=== PATIENT | male | born 1960 | race Caucasian/White ===

== ENCOUNTER → 2017-10-05 | Day surgery (SDC) | payer OTHER ==
[~2017-10-05] VITALS: Ht 180.3 cm; Wt 106.6 kg
[~2017-10-05] MED LIST: NEXIUM40 M1 PO; SERTRALINE HCL100 MG PO
--- NOTE | 2017-10-05 10:55 | Operative Report ---
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 Patient complaining mechanical symptoms and swelling and was indicated for surgical arthroscopy. The risks and benefits of procedure discussed in detail in the office and he wished to proceed. Of note this morning preoperatively the patient did mention that he had some poison wesley on the left leg. I inspected the area and deemed it to be reasonable to proceed with the surgery since poison wesley was not and the location of the R scopic portals. Operative/Procedure Note Note: Once informed consent was obtained and the correct limb was identified the patient was brought to operative room placed on table supine position. After administration of general endotracheal anesthesia patient's left leg was placed in leg spears and the foot of table was dropped. Left lower extremity is prepped and draped usual sterile fashion. To begin the procedure standard lateral portal was made and the arthroscope was introduced. Diagnostic arthroscopy was carried out. Patellofemoral joint was inspected. There no plica or bands. There are no loose bodies. The inferior pole of patella grade 1 chondral malacia changes. Femoral trochlea had grade 2 chondral malacia changes. The scope was taken to lateral gutter. There are no loose bodies. The leg was placed in figure 4 position and lateral compartment of the knee was entered. Lateral compartment of the knee was pristine with no evidence of meniscal pathology or cartilage damage. The arthroscope was taken across intercondylar notch and the ACL was intact. I placed a valgus stress in the knee medial compartment knee was entered. There is apparently a horizontal cleavage tear of the body of the medial meniscus on inspection. A medial portal was made under direct visualization and the meniscal tear was probed. Using a straight biting instrument and a 4.2 full-radius shaver partial medial meniscectomy was performed without complication. The meniscus was trimmed back to a stable rim. Probe was placed underneath and over the top of the meniscus was not able to bring any the meniscus into the joint from the posterior horn of the medial meniscus all around to the body of the medial meniscus. The medial gutter was checked for any loose bodies and there were none. The knee was irrigated with sterile saline solution and the instruments were removed. This portals were closed with 3-0 nylon interrupted sutures and a sterile dressing was applied. The patient was awakened and taken recovery room in stable condition.
== END ==
LOC: STS 01:37
DX: M23.232 Derangement of other medial meniscus due to old tear or injury, left knee (principal); M22.42 Chondromalacia patellae, left knee; K21.9 Gastro-esophageal reflux disease without esophagitis; G47.33 Obstructive sleep apnea (adult) (pediatric); L23.7 Allergic contact dermatitis due to plants, except food
CPT/HCPCS: J0131; J2250

== ENCOUNTER 2018-01-18 12:40 | Emergency (ER) | payer OTHER ==
[~2018-01-18] VITALS: Ht 180.3 cm; Wt 104.3 kg
--- NOTE | 2018-01-18 12:59 | ED CARDIAC/CP/PALPITATIONS ---
See Addendum History of Present Illness General Chief Complaint: Chest Pain Stated Complaint: CHEST TIGHTNESS, PAIN Source: patient Exam Limitations: no limitations Vital Signs & Intake/Output Vital Signs & Intake/Output Vital Signs Date Time Temp Pulse Resp B/P B/P Pulse O2 O2 Flow FiO2 Mean Ox Delivery Rate 01/18 1328 56 18 178/86 98 Room Air Room Air 01/18 1315 98 Room Air Room Air 01/18 1304 62 20 185/93 97 Room Air Room Air 01/18 1248 97.3 60 16 186/100 95 Room Air Allergies Coded Allergies: Penicillins (HIVES 10/03/17) cefadroxil (From DURICEF) (HIVES 10/03/17) Reconcile Medications Esomeprazole (Nexium) 40 MG CAPSULE.DR 1 CAP PO DAILY GI (Reported) Sertraline HCl 100 MG TABLET 1 TAB PO DAILY MENTAL HEALTH (Reported) Triage Note: PT TO ED C/O CHEST PRESSURE SINCE WAKING 1 HOUR AGO. STATES IT WOKE HIM UP. HAD SIMILAR EPISODE ON TUESDAY. STATES PAIN IS 2/10. DENIES N/V/D. DENIES SOB, DIFF BREATHING. PT APPEARS DIAPHORETIC. EKG DONE. Triage Nurses Notes Reviewed? yes Onset: Abrupt Duration: better Timing: single episode today Quality/Severity: moderate, pressure Location: central Radiation: arms, back HPI: Patient is a 57-year-old male with a past medical history of depression on Zoloft and GERD who 3 months ago had a left knee arthroscopy and 10 days ago had a endoscopy performed by Dr. Merlos in which she states that on Tuesday while at rest he had approximately 20-30 minutes of chest pain that resolved patient did not get evaluated by a medical provider patient states that today he was in his normal state health one hour prior to arrival while at rest he had recurrence of his chest pain with symptoms of lightheaded sensation dizziness and excessive diaphoresis with back pain and right arm pain. Symptoms have completely resolved. Patient took aspirin 325 today Patient denies any illicit drug use however does drink alcohol on a regular basis last alcohol beverage was Tuesday. He states that since the symptoms began on Tuesday he limited his drinking Denies any cardiology workup in the past (Woody SANDERSON,Brian) Past History Travel History Traveled to [place] past 21 day No Medical History Any Pertinent Medical History? see below for history Gastrointestinal: GERD Psychiatric: depression Surgical History Surgical History: non-contributory Psychosocial History What is your primary language Lithuanian Tobacco Use: Never used ETOH Use: heavy use Illicit Drug Use: denies illicit drug use Family History Hx Contributory? No (Brian Olsen) Review of Systems Review of Systems Constitutional: Reports: no symptoms. EENTM: Reports: no symptoms. Respiratory: Reports: see HPI. Cardiovascular: Reports: see HPI, chest pain. GI: Reports: no symptoms. Genitourinary: Reports: no symptoms. Musculoskeletal: Reports: see HPI, back pain. Skin: Reports: no symptoms. Neurological/Psychological: Reports: no symptoms. Hematologic/Endocrine: Reports: no symptoms. Immunologic/Allergic: Reports: no symptoms. All Other Systems: Reviewed and Negative (Brian Olsen) Physical Exam Physical Exam General Appearance: alert, DIAPHORETIC Head: atraumatic Eyes: Bilateral: normal appearance. Ears, Nose, Throat: hearing grossly normal Neck: normal inspection, full range of motion Respiratory: normal breath sounds, chest non-tender, no respiratory distress Cardiovascular: regular rate/rhythm Gastrointestinal: normal bowel sounds, soft, non-tender Rectal: heme negative stool Extremities: normal inspection, no edema Neurologic/Psych: no motor/sensory deficits, awake, alert Skin: intact, normal color, warm/dry Core Measures ACS in differential dx? Yes CVA/TIA Diagnosis No Sepsis Present: No Sepsis Focused Exam Completed? No (Brian Olsen) Progress Differential Diagnosis: AMI, aortic dissection, atrial fibrillation, cholecystitis, CHF/pulm edema, costochondritis, hyperkalemia, hypovolemia, hyperthyroid, hyperventilation, intracranial hemorrhage, musculoskeletal pain, myocarditis, pancreatitis, pericarditis, pneumonia, pneumothorax, PSVT, pulmonary embolism, PUD/GERD, PVCs/PACs, respiratory failure, rib fracture, sepsis, unstable angina, V-fib/V-Tach, WPW syndrome Plan of Care: Orders Procedure Date/time Status LIPID PANEL 01/19 0600 Active TROPONIN LEVEL 01/18 2330 Active EKG 01/18 2300 Active TROPONIN LEVEL 01/18 1800 Active EKG 01/18 1800 Active Lab Add-on Test 01/18 1514 Active Add-on Test (ER Only) 01/18 1506 Active Pathway - chart 01/18 1454 Active House Staff 01/18 1454 Active Patient Data 01/18 1454 Active Code Status 01/18 1454 Active Patient Data 01/18 1434 Active THYROID STIMULATING HORMONE 01/18 1253 Active PARTIAL THROMBOPLASTIN TIME 01/18 1253 Complete PROTHROMBIN TIME 01/18 1253 Complete GLYCOSYLATED HGB 01/18 1253 Active URINALYSIS 01/18 1244 Complete TROPONIN LEVEL 01/18 1244 Active MAGNESIUM 01/18 1244 Active D-DIMER 01/18 1244 Complete COMPREHENSIVE METABOLIC PANEL 01/18 124 Active CBC WITHOUT DIFFERENTIAL 01/18 1244 Complete EKG 01/18 1242 Active VTE Mechanical Prophylaxis 01/18 UNK Active Telemetry/Potato Chip Fryer 01/18 UNK Active Current Medications Sig/Sommer Start time Last Medication Dose Stop Time Status Admin Ticagrelor 90 MG BID 01/19 0900 UNVr (Brilinta) Nitroglycerin 0.5 GM Q6 01/18 1800 UNVr (Nitro-Bid) Atorvastatin Calcium 80 MG 1700 01/18 1700 UNVr (Lipitor) Nitroglycerin 0.4 MG ONCE ONE 01/18 1530 AC 01/18 (Nitrostat) 01/18 1531 1520 Aspirin 325 MG DAILY 01/18 1515 UNVr (Aspirin) Heparin Sodium 25,000 UNIT Q24H 01/18 1430 UNVr 01/18 (Porcine) 1500 (Heparin) Sodium Chloride 500 ML Laboratory Tests 01/18/18 1506: PT Cancelled, INR Cancelled, APTT Cancelled 01/18/18 1500: Urine Color YEL, Urine Clarity CLEAR, Urine pH 6.0, Ur Specific [place] 1.015, Urine Protein NEG, Urine Ketones NEG, Urine Nitrite NEG, Urine Bilirubin NEG, Urine Urobilinogen 0.2, Ur Leukocyte Esterase NEG, Ur Microscopic EXAM NOT REQUIRED, Urine Hemoglobin NEG, Urine Glucose NEG 01/18/18 1253: Anion Gap 9, Estimated GFR > 60, BUN/Creatinine Ratio 16.3, Glucose 116 H, Hemoglobin A1c Pending, Calcium 9.6, Magnesium 1.9, Total Bilirubin 0.3, AST 32, ALT 32, Alkaline Phosphatase 59, Troponin I 0.31 *H, Total Protein 7.0, Albumin 4.2, Globulin 2.8, Albumin/Globulin Ratio 1.5, TSH Pending, PT 10.9, INR 1.00, APTT 31, D-Dimer High Sensitivty < 200, CBC w Diff NO MAN DIFF REQ, RBC 4.58 L, MCV 90.9, MCH 31.5 H, MCHC 34.6, RDW 13.6, MPV 6.9 L, Gran % 60.7, Lymphocytes % 28.5, Monocytes % 6.8, Eosinophils % 3.1, Basophils % 0.9, Absolute Granulocytes 3.9, Absolute Lymphocytes 1.8, Absolute Monocytes 0.4, Absolute Eosinophils 0.2, Absolute Basophils 0.1 Patient on arrival is noted to be diaphoretic however denies any chest pain, patient took aspirin 325 prior to arrival, patient has normal sinus rhythm EKG, patient has noted critical findings of Diagnostic Imaging: Viewed by Me: Radiology Read. Radiology Impression: no acute abnormality Initial ED EKG: sinus rhythm 64 bpm Comments: PATIENT: KARAN FOLEY PRESENT AGE: 57 PATIENT ACCOUNT NO: [id number] : 60 LOCATION: [facility] ORDERING PHYSICIAN: Darek SANDERSON SERVICE DATE: 01/18/18 EXAM TYPE: RAD - XRY-CHEST XRAY, TWO VIEWS EXAMINATION: XR CHEST CLINICAL INFORMATION: Chest pressure. COMPARISON: Chest x-ray dated 12/12/2007. TECHNIQUE: 2 views of the chest were obtained. FINDINGS: The cardiomediastinal silhouette is within normal limits in size. Mild ectasia of the aorta is seen. Mild focal eventration of the anterior right hemidiaphragm is seen. Chronic linear opacities seen in the left upper lobe, consistent with chronic scarring. No focal consolidation, effusion or pneumothorax is seen. There is a mild S-shaped thoracolumbar scoliosis. No suspicious bone findings. IMPRESSION: Mild chronic linear scarring in the left upper lobe. No acute findings. DICTATED BY: Roxie Hoyos MD DATE/TIME DICTATED:01/18/181421 KILN PULLER:DEBBI DATE/TIME TRANSCRIBED:01/18/181421 CONFIDENTIAL, DO NOT COPY WITHOUT APPROPRIATE AUTHORIZATION. (Brian Olsen) Departure Departure Disposition: STILL A PATIENT Condition: Critical Clinical Impression Primary Impression: Non-ST elevated myocardial infarction Referrals: Manoj ARCHER,Alirio Nunes (PCP/Family) Departure Forms: Customer Survey General Discharge Information Admission Note Spoke With: Janet Kelly MD Documentation of Exam: Documentation of any treatments & extenuating circumstances including Concerns Regarding Discharge (functional status, medication knowledge or non-compliance, living conditions, etc.) that warrant an admission rather than observation: [ Patient requires telemetry monitoring repeat EKG repeat troponins anticoagulation cardiology consultation for concerns of critical findings of non -STEMI] (Brian Olsen) Departure Comments 01/18/18 I've seen and examined the patient and I agree with the PAs evaluation. He is a 57-year-old man who presents with intermittent episodes of chest pain. The chest pain occurs when he is exerting himself like mowing the lawn. Now he has no chest pain. His EKG reveals normal sinus rhythm. He has a positive troponin. He is being admitted to the telemetry unit for further care. Dr. Pratt has been consulted and is recommending heparin. Admission Note Documentation of Exam: Documentation of any treatments & extenuating circumstances including Concerns Regarding Discharge (functional status, medication knowledge or non-compliance, living conditions, etc.) that warrant an admission rather than observation: 3:30 PM Cardiology evaluated the patient and determined that he would be appropriate for early interventional therapy. He is therefore being transferred for cardiac catheterization. This is not for ST segment elevation CT but rather for early interventional therapy. (Tone Mariano DO) Critical Care Note Critical Care Note Critical Care Time: 75-104 min (Brian Olsen)
[2018-01-18 13:05] LABS: ABSOLUTE BASOPHIL COUNT 0.1 /CUMM (0.0-0.2); ABSOLUTE EOSINOPHIL COUNT 0.2 /CUMM (0.0-0.7); ABSOLUTE GRANULOCYTE CT 3.9 /CUMM (1.4-6.5); ABSOLUTE LYMPH COUNT 1.8 /CUMM (1.2-3.4); ABSOLUTE MONOCYTE COUNT 0.4 /CUMM (0.10-0.60); BASOPHIL % 0.9 % (0.0-2.0); EOSINOPHIL % 3.1 % (0-5); GRANULOCYTE % 60.7 % (42.2-75.2); HEMATOCRIT 41.7 % (42-52); MEAN CORPUSCULAR HGB 31.5 PG (27.0-31.0); MEAN CORPUSCULAR HGB CONC 34.6 G/DL (33.0-37.0); MEAN CORPUSCULAR VOLUME 90.9 FL (80.0-94.0); MEAN PLATELET VOLUME 6.9 FL (7.4-10.4); PLATELET COUNT 264 /CUMM (130-400); RBC DISTRIBUTION WIDTH 13.6 % (11.5-14.5); RED BLOOD CELL CT 4.58 /CUMM (4.70-6.10); WHITE BLOOD CELL COUNT 6.4 /CUMM (4.8-10.8)
--- NOTE | 2018-01-18 14:30 | RADIOLOGY REPORT ---
EXAMINATION: XR CHEST CLINICAL INFORMATION: Chest pressure. COMPARISON: Chest x-ray dated 12/12/2007. TECHNIQUE: 2 views of the chest were obtained. FINDINGS: The cardiomediastinal silhouette is within normal limits in size. Mild ectasia of the aorta is seen. Mild focal eventration of the anterior right hemidiaphragm is seen. Chronic linear opacities seen in the left upper lobe, consistent with chronic scarring. No focal consolidation, effusion or pneumothorax is seen. There is a mild S-shaped thoracolumbar scoliosis. No suspicious bone findings. IMPRESSION: Mild chronic linear scarring in the left upper lobe. No acute findings.
--- NOTE | 2018-01-18 14:52 | History & Physical ---
Sheree ARCHER,Kayley 01/18/18 1452: General Information and HPI MD Statement: I have seen and personally examined KARAN FOLEY and documented this H&P. The patient is a 57 year old M who presented with a patient stated chief complaint of [chest pain]. Source of Information: patient Exam Limitations: no limitations History of Present Illness: Patient is a 57-year-old male presented to the ED with chief complaints of continuous chest pressure since last 1 hour. he was sleeping at the time of chest pain and it woke him up. chest pain with symptoms of lightheaded sensation dizziness and excessive diaphoresis with back pain and right arm pain. Symptoms have completely resolved. Patient took aspirin 325 todayPatient had similar episode on Tuesday and the pain was in the range of 2/10 but there was no any associated nausea, vomiting, shortness of breath. At the time of presentation patient was diaphoretic. 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 Blood workup showed-hemoglobin 14.4, hematocrit 41.7, platelet count 264, serum sodium 138, potassium 4.2, chloride 106, anion gap 9, BUN 13, creatinine 0.8, glucose 116, calcium 9.6, magnesium 1.9, AST 32, ALT 32, alkaline phosphatase 59 , troponin I 0.31, albumin 4.2, d-dimer less than 200, urinalysis-pending CXR -Mild chronic linear scarring in the left upper lobe. No acute findings. Patient was given Brilinta, was started on IV heparin drip. Assessment and plan- Non-ST elevation NH Allergies/Medications Allergies: Coded Allergies: Penicillins (HIVES 10/03/17) cefadroxil (From DURICEF) (HIVES 10/03/17) Home Med list Esomeprazole (Nexium) 40 MG CAPSULE.DR 1 CAP PO DAILY GI (Reported) Sertraline HCl 100 MG TABLET 1 TAB PO DAILY MENTAL HEALTH (Reported) Past History Travel History Traveled to [place] past 21 day No Medical History Gastrointestinal: GERD Psychiatric: depression Surgical History Surgical History: non-contributory Past Family/Social History Psychosocial History ETOH Use: heavy use Illicit Drug Use: denies illicit drug use Review of Systems Review of Systems Constitutional: Denies: no symptoms. Exam & Diagnostic Data Last 24 Hrs of Vital Signs/I&O Vital Signs Date Time Temp Pulse Resp B/P B/P Pulse O2 O2 Flow FiO2 Mean Ox Delivery Rate 01/18 1328 56 18 178/86 98 Room Air Room Air 01/18 1315 98 Room Air Room Air 01/18 1304 62 20 185/93 97 Room Air Room Air 01/18 1248 97.3 60 16 186/100 95 Room Air Intake & Output 01/18 1600 01/18 0800 01/18 0000 Intake Total 500 Output Total Balance 500 Intake, IV 500 Patient 104.326 kg Weight Weight Reported by Patient Measurement Method Physical Exam General Appearance Alert, Oriented X3, Cooperative Cardiovascular Normal S1, Normal S2 Lungs Clear to Auscultation, Normal Air Movement Abdomen Soft, No Tenderness Extremities No Clubbing, No Cyanosis, No Edema Core Measures/Misc (02/27) Acute Coronary Syndrome ACS Diagnosis: Yes Congestive Heart Failure Congestive Heart Failure Diagnosis No Cerebrovascular Accident CVA/TIA Diagnosis: No VTE (View Protocol) VTE Risk Factors Age>40 No Mechanical VTE Prophylaxis d/t N/A MechProphylax Ordered No VTE Pharm Prophylaxis d/t NA PharmProphylax ordered Sepsis (View protocol) Sepsis Present: No If YES complete Sepsis Event Note If YES complete Sepsis Event Note Janet Kelly MD 01/18/18 1509: Core Measures/Misc (02/27) Sepsis (View protocol) If YES complete Sepsis Event Note If YES complete Sepsis Event Note Attending MD Review Statement Attending Statement Attending MD Statement: examined this patient, discuss w/resident/PA/AGENT LICENSING CLERK, agreed w/resident/PA/AGENT LICENSING CLERK, reviewed EMR data (avail) Attending Assessment/Plan: 57M PMH GERD presenting with chest pain. Patient initially had an episode of chest pain 5 days ago at rest, lasting 30 minutes, associated with mild SOB, mid -sternal, non-radiating, resolved on its own. He has noticed that he will have some chest tightness when mowing the lawn or exerting himself of late. Today he had more severe chest pain started at rest, mid-sternal, radiating to the back, associated with diaphoresis and SOB, lasting 30 minutes. He took ASA 325mg at home. Upon arrival to ER, chest pain had resolved. He is currently asymptomatic and feels well. He does not smoke and has never had cardiac issues before. Had an EGD 10 days ago which shows some gastritis but was otherwise normal. EKG is NSR without acute changes, troponin level is 0.31, BP 186/100 initially, HR 60 and regular. On exam he is comfortable, non-diaphoretic, normal cardiopulmonary exam. 1. NSTEMI Plan - Admit to telemetry - Brilinta loading dose followed by 90mg BID - ASA daily - Nitropaste - Metoprolol if HR can tolerate, hold for now as he is in high 50's/low 60's - Cardiology consult - Trend cardiac enzyme and EKG - Check TSH, lipids, HbA1c - DVT PPx
[2018-01-18 15:21] LABS: PT 10.9 SEC (9.4-12.5); PTT 31 SEC (25-37)
[2018-01-18 15:43] VITALS: BP 176/86
== END 2018-01-18 16:06 | disposition short-term general hospital (02) ==
LOC: ERH 12:40
PROVIDERS: Physician Assistant Medical
DX: I21.4 Non-ST elevation (NSTEMI) myocardial infarction (principal); R07.9 Chest pain, unspecified; R42 Dizziness and giddiness; M54.9 Dorsalgia, unspecified; M79.601 Pain in right arm; F10.10 Alcohol abuse, uncomplicated
CPT/HCPCS: 71046; 81003; 93005; 93010; 96361; 96374; 99291; J1644; J3490